=== PATIENT | female | born 1945 | race Caucasian/White ===

== ENCOUNTER 2016-10-29 13:28 | Emergency (ER) | payer MEDICARE, OTHER ==
[~2016-10-29] VITALS: Ht 162.6 cm; Wt 86.2 kg
[~2016-10-29 13:28] MED LIST: ATIVAN0.5 MG PO; DURAGESIC25 MCG/HR TD; ELAVIL10 MG PO; GLUCOTROL5 MG PO; METFORMIN500 MG PO; MOBIC7.5 MG PO; NORCO 10/325 MG1 TAB PO; PROTONIX40 M1 PO; REGLAN10 MG PO; ULTRAM50 MG PO; ZOLOFT50 MG PO
[2016-10-29 13:35] VITALS: BP 89/41
--- NOTE | 2016-10-29 13:46 | NUR ---
Pt taken to bed 8.
--- NOTE | 2016-10-29 13:50 | NUR ---
70/F presents to ED for evaluation of left sided headache radiating to left neck and left arm since Monday, 6 days ago. Patient also states "My jaw locked and made a cracking sound on the left side." Patient c/o tingling sensation over left eyebrow. Denies numbness or tingling in upper and lower extremities. Pt went to see PMD this morning and was referred to go to ED for r/o stroke. 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 Patient denies changes in vision. C/o headache, denies blurry vision. Denies chest pain, SOB, denies N/V/D. Patient is AOX4, clear speech, somali speaking, VSS.
[2016-10-29] MEDS ORDERED: ONDANSETRON 4 MG/2 ML VIAL IVP ONE (13:55)
[2016-10-29] MEDS ORDERED: NACL 0.9% 1,000 ML IV ONE (13:55)
--- NOTE | 2016-10-29 14:07 | NUR ---
Patient taken to CT accompanied by [facility] behavioral health technician and [place]
--- NOTE | 2016-10-29 15:06 | NUR ---
Patient appears to be resting comfortably in bed. Vital Signs within normal limits. Respirations even and unlabored. Will continue to monitor patient.
[2016-10-29] MEDS ORDERED: ACETAMINOPHEN EXTRA STRENGTH 500 MG TAB PO ONE (15:10)
--- NOTE | 2016-10-29 16:25 | NUR ---
Patient appears to be resting comfortably in bed. Vital Signs within normal limits. Respirations even and unlabored. Family at bedside.
--- NOTE | 2016-10-29 17:10 | NUR ---
Dr. Nieves re-evaluating patient at bedside.
--- NOTE | 2016-10-29 17:25 | NUR ---
IV removed, catheter intact and site benign. Applied folded 4x4 gauze and tape to stop bleeding.
[2016-10-29 17:29] VITALS: BP 126/74
--- NOTE | 2016-10-29 17:29 | NUR ---
Patient discharged with v/s stable. Written and verbal after care instructions given and explained. Patient alert, oriented and verbalized understanding of instructions. Ambulatory with steady gait. All questions addressed prior to discharge. ID band removed. Patient advised to follow up with PMD. Rx of TYLENOL W/ CODEINE NO.3 TABLET given. Patient educated on indication of medication including possible reaction and side effects. Opportunity to ask questions provided and answered.
--- NOTE | 2016-10-29 17:30 | NUR ---
Chart checked and completed. The patient's care was reviewed and supervised by Farrah Muro RN.
== END 2016-10-29 17:29 | disposition home or self-care (01) ==
LOC: MED 13:28
DX: G43.909 Migraine, unspecified, not intractable, without status migrainosus (principal); E11.9 Type 2 diabetes mellitus without complications; F41.9 Anxiety disorder, unspecified; F32.9 Major depressive disorder, single episode, unspecified; Z79.899 Other long term (current) drug therapy
CPT/HCPCS: 36415; 70450; 71010; 80053; 82553; 82948; 83880; 84484; 85025; 85610; 85730; 93005; 96374; 99285; J2405; J7030; Q0092

== ENCOUNTER 2017-07-24 20:09 | Emergency (ER) | payer MEDICARE, OTHER ==
[~2017-07-24] VITALS: Ht 165.1 cm; Wt 90.7 kg
[~2017-07-24 20:09] MED LIST changes: +ACET-787 PO; +ATI.5 PO; -ATIVAN0.5 MG PO; -DURAGESIC25 MCG/HR TD; +ELA10 PO; -ELAVIL10 MG PO; +FENT25TD TD; +GLIP5TAB4 PO; +GLU500 PO; -GLUCOTROL5 MG PO; +MELO7.5T11 PO; -METFORMIN500 MG PO; +METO-460 PO; -MOBIC7.5 MG PO; -NORCO 10/325 MG1 TAB PO; +PANT40PD1 PO; -PROTONIX40 M1 PO; -REGLAN10 MG PO; +SERT50TA PO; +TRAM50TA1 PO; -ULTRAM50 MG PO; -ZOLOFT50 MG PO
[2017-07-24 20:18] VITALS: BP 132/72
--- NOTE | 2017-07-24 20:34 | NUR ---
PT TAKEN TO BED 1
--- NOTE | 2017-07-24 20:45 | NUR ---
Patient being evaluated by DR. LEUNG at bedside.
[2017-07-24] MEDS ORDERED: TETRACAINE HCL/PF 0.5% OPTH 4 ML BTL ONE (20:47)
[2017-07-24] MEDS ORDERED: FLUORESCEIN OPTH STRIP 1 MG ONE (20:47)
[2017-07-24] MEDS ORDERED: TETRACAINE HCL/PF 0.5% OPTH 4 ML BTL OP ONE (20:50)
[2017-07-24] MEDS ORDERED: ACETAMINOPHEN/CODEINE 300/30MG 1 TAB PO ONE (20:50)
[2017-07-24] MEDS ORDERED: FLUORESCEIN OPTH STRIP 1 MG OP ONE (20:50)
--- NOTE | 2017-07-24 21:15 | NUR ---
71Y/F PT. PRESENTS TO ED WITH C/O RT. EYE PAIN. PER DAUGHTER, PT. HIT RT. EYE TO THE CHAIR WHILE GRASPING WATER BOTTLE. NO LOC. HX. DM, ANXIETY, NEUROPATHY. AAO X4, AMBULATORY WITH STEADY GAIT, GCS 15. RESPIRATIONS ROOM AIR, EVEN AND UNLABORED. LT. EYE BRUISES NOTED. C/O PAIN 12/26. VSS, ER MD MADE AWARE OF PT. STATUS.
--- NOTE | 2017-07-24 22:15 | NUR ---
Patient discharged with v/s stable. Written and verbal after care instructions given and explained. Patient alert, oriented and verbalized understanding of instructions. Ambulatory with steady gait. All questions addressed prior to discharge. ID band removed. Patient advised to follow up with PMD. Rx of TOBRAMYCIN 0.3% OPHTHALMIC SOLUTION, TYLENOL NO.3 given. Patient educated on indication of medication including possible reaction and side effects. Opportunity to ask questions provided and answered.
[2017-07-24 22:21] VITALS: BP 115/67
== END 2017-07-24 22:15 | disposition home or self-care (01) ==
LOC: MED 20:09
DX: S05.12XA Contusion of eyeball and orbital tissues, left eye, initial encounter (principal); E11.9 Type 2 diabetes mellitus without complications; Z79.899 Other long term (current) drug therapy; W22.8XXA Striking against or struck by other objects, initial encounter; Y92.89 Other specified places as the place of occurrence of the external cause; Y93.89 Activity, other specified; Y99.8 Other external cause status
CPT/HCPCS: 70486; 99284

== ENCOUNTER 2022-05-07 09:06 | Emergency (ER) | payer OTHER ==
[~2022-05-07] VITALS: Ht 160 cm; Wt 78.6 kg
[~2022-05-07 09:06] MED LIST changes: -ACET-787 PO; +AMIT10TA36 PO; -ELA10 PO; +GLIP5TAB14 PO; -GLIP5TAB4 PO; +HYDR-5191 PO
[2022-05-07 09:11] VITALS: BP 108/62
--- NOTE | 2022-05-07 09:16 | NUR ---
PT AMB TO BED4.
[2022-05-07] MEDS ORDERED: HYDROcodone/APAP 5/325 MG 1 TAB TAB PO ONE (09:35)
[2022-05-07] MEDS ORDERED: ACET-8386 PO (09:48)
[2022-05-07] MEDS ORDERED: NALO4SPR NS (09:48)
--- NOTE | 2022-05-07 09:51 | NUR ---
76 y/o female bib self from home, c/o shoulder pain on left side post sx that was done yesterday. jose nelson. orthopedics at [facility] [place]. pt states she has only been taking ibuprofen for pain, no relief. pt is a&ox4, sinhala speaking, ambulates with even and steady gait. denies fever, chills, cough, sob or cp. states pain is currently 10/10, pt appears to be in visible ditress. pmh: diabetes nka med: pantoprazole, sertraline, metformin, and montelukast
[2022-05-07 10:04] VITALS: BP 108/62
--- NOTE | 2022-05-07 10:04 | NUR ---
Patient discharged with v/s stable. Written and verbal after care instructions given and explained. Patient alert, oriented and verbalized understanding of instructions. Ambulatory with steady gait to family car. All questions addressed prior to discharge. ID band removed. Patient advised to follow up with PMD. Rx of narcan spray, norco (sent) given. Patient educated on indication of medication including possible reaction and side effects. Opportunity to ask questions provided and answered. original ortho paperwork given to pt
[2022-05-08] MEDS ORDERED: IBUP-2213 PO (04:18)
== END 2022-05-07 10:00 | disposition home or self-care (01) ==
LOC: MED 09:06
DX: G89.18 Other acute postprocedural pain (principal); M25.512 Pain in left shoulder; E11.9 Type 2 diabetes mellitus without complications; Z79.84 Long term (current) use of oral hypoglycemic drugs; Z79.899 Other long term (current) drug therapy; Z98.890 Other specified postprocedural states
CPT/HCPCS: 99283

== ENCOUNTER 2022-05-08 03:23 | Emergency (ER) | payer OTHER ==
[~2022-05-08] VITALS: Ht 160 cm; Wt 79.8 kg
[~2022-05-08 03:23] MED LIST changes: +ACET-8386 PO; +NALO4SPR NS
[2022-05-08 03:36] VITALS: BP 143/78
--- NOTE | 2022-05-08 03:40 | NUR ---
PT TAKEN TO BED 1
[2022-05-08] MEDS ORDERED: MORPHINE SULFATE 4 MG/ML SYR IM ONE (03:45)
--- NOTE | 2022-05-08 04:02 | NUR ---
Dr. Wade examining patient.
[2022-05-08] MEDS ORDERED: IBUP-2213 PO (04:18)
[2022-05-08 04:21] VITALS: BP 122/74
== END 2022-05-08 04:25 | disposition home or self-care (01) ==
LOC: MED 03:23
DX: G89.18 Other acute postprocedural pain (principal); M25.512 Pain in left shoulder; E11.9 Type 2 diabetes mellitus without complications; Z98.890 Other specified postprocedural states; Z79.899 Other long term (current) drug therapy; Z79.891 Long term (current) use of opiate analgesic
CPT/HCPCS: 96372; 99283; J2270